=== PATIENT | female | born 1945 | race Caucasian/White ===

== ENCOUNTER 2021-10-18 11:45 | Day surgery (SDC) | payer MEDICARE ==
[2021-10-15 16:44] LABS: BASOPHILS % (AUTO) 0.2 % (0-1); EOSINOPHILS % (AUTO) 0.6 % (0-6); LYMPHOCYTES # (AUTO) 1.9 X10'3 (1.1-4.8); LYMPHOCYTES % (AUTO) 34.9 % (21-51); MEAN CORPUSCULAR HEMOGLOBIN 31.4 PG (27.0-31.0); MEAN CORPUSCULAR HGB CONC 34.2 g/dL (33.0-36.5); MEAN CORPUSCULAR VOLUME 91.8 FL (78-98); MEAN PLATELET VOLUME 8.8 FL (7.4-10.4); MONOCYTES # (AUTO) 0.6 X10'3 (0-0.9); NEUTROPHILS # (AUTO) 2.9 X10'3 (1.8-7.7); NEUTROPHILS % (AUTO) 53.3 % (42-75); PRE OP HEMATOCRIT 41.9 % (35.0-45.0); PRE OP HEMOGLOBIN 14.3 g/dL (12.0-16.0); PRE OP PLATELET COUNT 171 X10'3 (140-440); RED BLOOD COUNT 4.56 X10'6 (4.20-5.60); RED CELL DISTRIBUTION WIDTH 13.5 % (11.5-14.5)
[2021-10-15 16:59] LABS: ALBUMIN 3.2 G/DL (3.4-5.0); ALBUMIN/GLOBULIN RATIO 0.8 (1.1-1.5); ALKALINE PHOSPHATASE 90 IU/L (46-116); BLOOD UREA NITROGEN 31 MG/DL (7-18); BUN/CREATININE RATIO 39.2 (6.6-38.0); CALCIUM 8.5 MG/DL (8.5-10.1); CHLORIDE 105 MMOL/L (99-107); CREATININE 0.79 MG/DL (0.40-0.90); PRE OP ALT 69 U/L (30-65); PRE OP ANION GAP 10 (8-16); PRE OP BILIRUB, TOTAL 0.5 MG/DL (0.0-1.0); PRE OP SODIUM 141 MMOL/L (135-145); TOTAL CARBON DIOXIDE 26.4 MMOL/L (24-32); eGFR 70 ML/MIN
[2021-10-15 17:03] LABS: PRE OP AST 55 U/L (10-37); PRE OP GLUCOSE 203 MG/DL (70-104); PRE OP POTASSIUM 4.5 MMOL/L (3.4-5.1)
[2021-10-18] VITALS (10 sets, daily range): BP systolic 136–172; BP diastolic 58–90
[~2021-10-18] VITALS: Ht 170.2 cm; Wt 78.8 kg
[~2021-10-18 11:45] MED LIST: ESTR0.5T29 PO; HYDR-3972 PO; INDOCYANINE GREEN 25 MG/10 ML VIAL IV ONE; NPH,100V2 SQ; OMEP40CA21 PO; ONDA-103 PO; VENL75CA61 PO; VITAMIN C PO; [UNRECOGNIZED DRUG - OTHER]; cefazolin/dext.iso 2gm/50ml IV ONE; famotidine 20mg tablet PO ONE; ringers solution, lacted 1,000 ML IV SCH
[2021-10-18] MEDS ORDERED: morphine 2 MG/ML inj. syringe IV PRN (12:55)
[2021-10-18] MEDS ORDERED: morphine 4 MG/ML inj SYRINge IV PRN (12:55)
[2021-10-18] MEDS ORDERED: proCHLORperazine 10 MG/2 ml inj IV PRN (12:55)
[2021-10-18] MEDS ORDERED: meperidine/PF 25mg/ml syringe IV PRN ×2 (12:55)
[2021-10-18] MEDS ORDERED: ringers solution, lacted 1,000 ML IV SCH (12:55)
[2021-10-18] MEDS ORDERED: ondansetron/PF 4mg/2ml inj IV PRN (12:55)
[2021-10-18] MEDS ORDERED: BUPIVAcaine 0.5% inj/PF 30 ML ONE (13:35)
[2021-10-18] MEDS ORDERED: LIDOcaine 1% 30ml preserv. free vial ONE (13:35)
[2021-10-18] MEDS ORDERED: fentaNYL/PF 50MCG/1 ML 2ML syringe ONE (13:47)
[2021-10-18] MEDS ORDERED: propofol inj 20 ML IV ONE (13:47)
[2021-10-18] MEDS ORDERED: rocuronium 10mg/ml inj IV ONE (13:56)
[2021-10-18] MEDS ORDERED: labetalol 20mg/4ml (5mg/ml) syringe IV ONE (14:14)
[2021-10-18] MEDS: BUPIVAcaine 0.5% inj/PF 30 ml vial IJ ONE (14:17)
[2021-10-18] MEDS ORDERED: ondansetron/PF 4mg/2ml inj ONE (14:33)
[2021-10-18] MEDS ORDERED: dexamethasone sod phosphate 4mg/ml inj. ONE (14:33)
[2021-10-18] MEDS ORDERED: sugammadex 200mg/2ml injection IV ONE (14:33)
--- NOTE | 2021-10-18 14:47 | NUR ---
Received from OR via , accompanied by Anesthesiologist DR JEFFERS and report given by Anesthesiolgist. AWAKENS TO VOICE. VITALS STABLE. DRESSINGS DI. TITO PAIN. ABD SOFT.
[2021-10-18] MEDS ORDERED: oxyCODONE/APAP 5-325mg tablet PO PRN (14:50)
[2021-10-18] MEDS: meperidine/PF 25mg/ml syringe IV PRN ×2 (15:48→16:03)
[2021-10-18] MEDS ORDERED: ketorolac tromethamine 15mg/ml inj. IV ONE (16:10)
--- NOTE | 2021-10-18 16:37 | NUR ---
AWAKE AND ORIENTED. VITALS STABLE. DRESSINGS DI. STATES PAIN IMPROVING. HOME WITH A FRIEND AT THIS TIME.
== END 2021-10-18 16:37 | disposition home or self-care (01) ==
LOC: PAS 11:45
PROVIDERS: ATTEND Surgery
DX: K80.10 Calculus of gallbladder with chronic cholecystitis without obstruction (principal); F41.9 Anxiety disorder, unspecified; F32.9 Major depressive disorder, single episode, unspecified; E11.9 Type 2 diabetes mellitus without complications; M19.90 Unspecified osteoarthritis, unspecified site; K21.9 Gastro-esophageal reflux disease without esophagitis; G89.29 Other chronic pain; Z88.8 Allergy status to other drugs, medicaments and biological substances; Z79.899 Other long term (current) drug therapy; Z79.4 Long term (current) use of insulin; Z96.649 Presence of unspecified artificial hip joint; Z98.890 Other specified postprocedural states; Z20.822 Contact with and (suspected) exposure to COVID-19; Z82.61 Family history of arthritis; Z83.3 Family history of diabetes mellitus
CPT/HCPCS: 36415; 47563; 80053; 82948; 85025; 87635; 93005; C9803; J1100; J1885; J2175; J2405; J2704; J3010; J3490; J7030; J7120; S0020; Z7506; Z7508; Z7512; A4215; A4618; A7000